=== PATIENT | female | born 1935 | race Caucasian/White ===

== ENCOUNTER 2016-10-13 14:44 | Emergency (ER) | payer MEDICARE ==
[~2016-10-13] VITALS: Ht 162.6 cm; Wt 68.0 kg
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
[2016-10-13] MEDS ORDERED: PREG50CA PO (15:47)
[2016-10-13] MEDS ORDERED: LEVO50TA8 PO (15:47)
[2016-10-13] MEDS ORDERED: SPIR25TA4 PO (15:47)
[2016-10-13] MEDS ORDERED: MONT10TA22 PO (15:47)
[2016-10-13] MEDS ORDERED: SERT50TA PO (15:47)
[2016-10-13] MEDS ORDERED: FURO-144 PO (15:47)
[2016-10-13] MEDS ORDERED: OMEP40CA37 PO (15:47)
[2016-10-13] MEDS ORDERED: OXYC5TAB3 PO (15:50)
--- NOTE | 2016-10-13 16:28 | NUR ---
PT. VERBALIZED UNDERSTANDING OF AFTERCARE INSTRUCTIONS.Patient discharged to home in stable condition. Written and verbal after care instructions given. Patient verbalizes understanding of instruction.
[2016-10-13 16:29] VITALS: BP 128/64
== END 2016-10-13 16:31 | disposition home or self-care (01) ==
LOC: ER 14:50
DX: S09.90XA Unspecified injury of head, initial encounter (principal); S20.212A Contusion of left front wall of thorax, initial encounter; E03.9 Hypothyroidism, unspecified; E11.9 Type 2 diabetes mellitus without complications; G62.9 Polyneuropathy, unspecified; J45.909 Unspecified asthma, uncomplicated; Z79.82 Long term (current) use of aspirin; Z86.73 Personal history of transient ischemic attack (TIA), and cerebral infarction without residual deficits; Z95.0 Presence of cardiac pacemaker; W01.0XXA Fall on same level from slipping, tripping and stumbling without subsequent striking against object, initial encounter; Y93.89 Activity, other specified; Y92.89 Other specified places as the place of occurrence of the external cause; Y99.9 Unspecified external cause status
CPT/HCPCS: 70450; 71100; 99284; A4606; Z7610